=== PATIENT | female | born 1965 | race Two or more races ===

== ENCOUNTER 2019-06-13 19:58 | Emergency (ER) | payer SELFPAY ==
[~2019-06-13] VITALS: Ht 149.9 cm; Wt 75.3 kg
[2019-06-13 20:22] VITALS: BP 139/91
--- NOTE | 2019-06-13 20:22 | NUR ---
ED Nurse Note: Patient walked in to ER from halfway c/o decrease in appetite, insomnia, and weakness x 10 days. As per her coding specialist/ advocate, patient has difficulty sleeping and hasnt been drinking water for 3 days. No SOB. Alert nad oriented, verbally responsive. Afebrile. No c/o pain or any discomfort. Welsh speaking only. Chief Marketing Officer/ advocate at bedside.
--- NOTE | 2019-06-13 20:45 | NUR ---
ED Nurse Note: IV line established. Blood and urine collected and sent to lab.
--- NOTE | 2019-06-13 20:53 | NUR ---
ED Nurse Note: Xray at bedside.
[2019-06-13 21:03] LABS: BASOPHILS % (AUTO) 1.2 % (0.0-2.0); EOSINOPHILS % (AUTO) 3.3 % (0.0-3.0); HEMATOCRIT 40.4 % (37.0-47.0); HEMOGLOBIN 13.3 G/DL (12.0-16.0); LYMPHOCYTES % (AUTO) 26.8 % (20.0-45.0); MEAN CORPUSCULAR VOLUME 89 FL (80-99); MONOCYTES % (AUTO) 6.8 % (1.0-10.0); NEUTROPHILS % (AUTO) 61.8 % (45.0-75.0); PLATELET COUNT 473 K/UL (150-450); RED BLOOD COUNT 4.55 M/UL (4.20-5.40); RED CELL DISTRIBUTION WIDTH 12.4 % (11.6-14.8); WHITE BLOOD COUNT 9.7 K/UL (4.8-10.8)
[2019-06-13 21:06] LABS: APPEARANCE,URINE CLEAR; BILIRUBIN, URINE NEGATIVE (NEGATIVE); COLOR,URINE PALE YELLOW; GLUCOSE, URINE (UA) NEGATIVE (NEGATIVE); KETONES,URINE NEGATIVE (NEGATIVE); LEUKOCYTE ESTERASE ,URINE NEGATIVE (NEGATIVE); NITRITE,URINE NEGATIVE (NEGATIVE); PH,URINE 6 (4.5-8.0); PROTEIN,URINE NEGATIVE (NEGATIVE); UROBILINOGEN,URINE NORMAL MG/DL (0.0-1.0)
[2019-06-13 21:16] LABS: ANION GAP 9 mmol/L (5-15); BLOOD UREA NITROGEN 11 mg/dL (7-18); CALCIUM 9.5 MG/DL (8.5-10.1); CARBON DIOXIDE 30 MMOL/L (21-32); CHLORIDE 103 MMOL/L (98-107); CREATININE 0.8 MG/DL (0.55-1.30); POTASSIUM 3.8 MMOL/L (3.5-5.1); SODIUM 141 MMOL/L (136-145)
--- NOTE | 2019-06-13 21:17 | Emergency Room Report ---
History of Present Illness General Chief Complaint: General Complaint Source: Patient Present Illness HPI 54-year-old female presents the ED for evaluation. Patient presents with patient advocate. Patient does not speak [place]. Manager Bar over the phone tells us that patient is experiencing lightheadedness and feels weak for the last several days. Also describes episodic chest pain nonspecific over the last 10 days. Denies shortness of breath. Denies chest pain at this time. Patient does not take any medications. Denies any history of hypertension or diabetes. Denies alcohol or drug use. No other aggravating relieving factors. Denies any other associated symptoms Allergies: Coded Allergies: No Known Allergies (Unverified , 06/13/19) Patient History Past Medical History: none Past Surgical History: none Pertinent Family History: none Social History: Denies: smoking, alcohol use, drug use Now: No Immunizations: UTD Reviewed Nursing Documentation: PMH: Agreed; PSxH: Agreed Nursing Documentation-PMH Past Medical History: No Stated History Review of Systems All Other Systems: negative except mentioned in HPI Physical Exam Vital Signs Date Time Temp Pulse Resp B/P (MAP) Pulse Ox O2 Delivery O2 Flow Rate FiO2 06/13/19 20:16 98.1 75 18 139/91 (107) 97 Room Air Sp02 EP Interpretation: reviewed, normal General Appearance: no apparent distress, alert, GCS 15, non-toxic Head: normocephalic, atraumatic Eyes: bilateral eye normal inspection, bilateral eye PERRL ENT: hearing grossly normal, normal pharynx, no angioedema, normal voice Neck: full range of motion, supple/symm/no masses Respiratory: chest non-tender, lungs clear, normal breath sounds, speaking full sentences Cardiovascular #1: regular rate, rhythm, no edema Cardiovascular #2: 2+ carotid (R), 2+ carotid (L), 2+ radial (R), 2+ radial (L) , 2+ dorsalis pedis (R), 2+ dorsalis pedis (L) Gastrointestinal: normal bowel sounds, non tender, soft, non-distended, no guarding, no rebound Rectal: deferred Genitourinary: normal inspection, no CVA tenderness Musculoskeletal: back normal, normal range of motion, gait/station normal, non- tender Neurologic: alert, motor strength/tone normal, oriented x3, sensory intact, responsive, speech normal Psychiatric: judgement/insight normal, memory normal, mood/affect normal, no suicidal/homicidal ideation Reflexes: 3+ bicep (R), 3+ bicep (L), 3+ tricep (R), 3+ tricep (L), 3+ knee (R) , 3+ knee (L) Lymphatic: no adenopathy Medical Decision Making Diagnostic Impression: Primary Impression: Anxiety ER Course Hospital Course 54 yo F presents to ED c/o feeling weak, light headed, episode chest pain Differential diagnoses include: MN/unstable angina, dehydration, anxiety Clinical course Patient placed on stretcher. on potline monitor. After initial history and physical I ordered labs, EKG, chest x-ray, IVFs labs reviewed- no leukocytosis, hemoglobin/hematocrit stable, troponins negative , electrolytes okay EKG - NSR, no acute ischemc changes interpreted by me CXR - no acute process On reassessment patient feels better. Patient advocate at bedside. Confirms that patient is feeling better. Will discharge to home. Vital stable. Labs unremarkable. No risk factors. Patient advocate believes that anxiety could be contributing to patient's symptoms as she lives in a usp. We will discharge to home. We will provide PMD referrals I. I feel this is a highly complex case requiring extensive working including EKG/Rhythm strip, Xray/CT/US, Blood/urine lab work, repeat exams while in ED, and administration of strong opiates/narcotics for pain control, admission to hospital or close patient follow up. Diagnosis - anxiety Stable and discharged to home. Followup with PMD. Return to ED if symptoms recur or worse Labs Test 06/13/19 20:43 White Blood Count 9.7 K/UL (4.8-10.8) Red Blood Count 4.55 M/UL (4.20-5.40) Hemoglobin 13.3 G/DL (12.0-16.0) Hematocrit 40.4 % (37.0-47.0) Mean Corpuscular Volume 89 FL (80-99) Mean Corpuscular Hemoglobin 29.2 PG (27.0-31.0) Mean Corpuscular Hemoglobin Concent 32.9 G/DL (32.0-36.0) Red Cell Distribution Width 12.4 % (11.6-14.8) Platelet Count 473 K/UL (150-450) Mean Platelet Volume 5.8 FL (6.5-10.1) Neutrophils (%) (Auto) 61.8 % (45.0-75.0) Lymphocytes (%) (Auto) 26.8 % (20.0-45.0) Monocytes (%) (Auto) 6.8 % (1.0-10.0) Eosinophils (%) (Auto) 3.3 % (0.0-3.0) Basophils (%) (Auto) 1.2 % (0.0-2.0) Urine Color Pale yellow Urine Appearance Clear Urine pH 6 (4.5-8.0) Urine Specific [place] 1.010 (1.005-1.035) Urine Protein Negative (NEGATIVE) Urine Glucose (UA) Negative (NEGATIVE) Urine Ketones Negative (NEGATIVE) Urine Blood Negative (NEGATIVE) Urine Nitrite Negative (NEGATIVE) Urine Bilirubin Negative (NEGATIVE) Urine Urobilinogen Normal MG/DL (0.0-1.0) Urine Leukocyte Esterase Negative (NEGATIVE) Sodium Level 141 MMOL/L (136-145) Potassium Level 3.8 MMOL/L (3.5-5.1) Chloride Level 103 MMOL/L (98-107) Carbon Dioxide Level 30 MMOL/L (21-32) Anion Gap 9 mmol/L (5-15) Blood Urea Nitrogen 11 mg/dL (7-18) Creatinine 0.8 MG/DL (0.55-1.30) Estimat Glomerular Filtration Rate > 60 mL/min (>60) Glucose Level 104 MG/DL (74-106) Calcium Level 9.5 MG/DL (8.5-10.1) Total Bilirubin 0.3 MG/DL (0.2-1.0) Aspartate Amino Transf (AST/SGOT) 20 U/L (15-37) Alanine Aminotransferase (ALT/SGPT) 27 U/L (12-78) Alkaline Phosphatase 107 U/L (46-116) Troponin I 0.000 ng/mL (0.000-0.056) Total Protein 9.1 G/DL (6.4-8.2) Albumin 4.0 G/DL (3.4-5.0) Globulin 5.1 g/dL Albumin/Globulin Ratio 0.8 (1.0-2.7) EKG Diagnostic Results Rate: normal Rhythm: NSR ST Segments: no acute changes ASA given to the pt in ED: No Rhythm Strip Diag. Results EP Interpretation: yes Rhythm: NSR, no PVC's, no ectopy Chest X-Ray Diagnostic Results Chest X-Ray Diagnostic Results : Chest X-Ray Ordered: Yes # of Views/Limited/Complete: 1 View Indication: Chest Pain EP Interpretation: Yes Interpretation: no consolidation, no effusion, no pneumothorax, no acute cardiopulmonary disease Impression: No acute disease Electronically Signed by: Electronically signed by Cesar Leon MD Last Vital Signs Date Time Temp Pulse Resp B/P (MAP) Pulse Ox O2 Delivery O2 Flow Rate FiO2 06/13/19 20:22 98.1 78 18 139/91 97 Room Air Status: improved Disposition: HOME, SELF-CARE Condition: Stable Scripts Diphenhydramine Hcl* (DIPHENHYDRAMINE HCL*) 25 Mg Capsule 25 MG ORAL Q6H PRN for Itching, #30 CAP 0 Refills Prov: Cesar Leon MD 06/13/19 Cesar Leon MD Jun 13, 2019 21:16
[2019-06-13 21:21] LABS: ALANINE AMINOTRANSFERASE 27 U/L (12-78); ALBUMIN/GLOBULIN RATIO 0.8 (1.0-2.7); ALKALINE PHOSPHATASE 107 U/L (46-116); ASPARTATE AMINO TRANSFERASE 20 U/L (15-37); BILIRUBIN,TOTAL 0.3 MG/DL (0.2-1.0)
[2019-06-13] MEDS ORDERED: DIPHENHYDRAMINE25 M1 ORAL (21:38)
[2019-06-13 21:42] VITALS: BP 128/88
--- NOTE | 2019-06-13 21:42 | NUR ---
ED Nurse Note: Pt cleared by ERMD for discharge. DC instructions/prescription was given and explained to pt and verbalized understanding of teachings. All medical deviecs such as ID band and IV line removed. Pt is AAO x4, ambulatory and left with all personal belongings. Accompanied by her primary caregiver.
--- NOTE | 2019-06-14 10:56 | Diagnostic Imaging Report ---
Indication: Dyspnea Comparison: None A single view chest radiograph was obtained. Findings: Lung volumes are low. Pulmonary vascularity is accentuated as is heart size. Bones are unremarkable. IMPRESSION: No acute disease
== END 2019-06-13 21:40 | disposition home or self-care (01) ==
LOC: EMR 20:32
DX: F41.9 Anxiety disorder, unspecified (principal); R07.9 Chest pain, unspecified
CPT/HCPCS: 36415; 71045; 80053; 81003; 84484; 85025; 93005; 96360; 99284

== ENCOUNTER 2019-08-23 17:18 | Inpatient (IN) | payer MEDICAID ==
[~2019-08-23] VITALS: Ht 144.8 cm; Wt 79.8 kg
[~2019-08-23 17:18] MED LIST: AUGMENTIN 875-1 EAC1 ORAL; DIPHENHYDRAMINE25 M1 ORAL; GUAIFENESI100 MG/5 M ORAL; PREDNISONE20 MG ORAL; VENTOLIN HFA18 GM INH
[2019-08-23 17:45] VITALS: BP 138/88
[2019-08-23 18:17] LABS: BASOPHILS % (AUTO) 1.9 % (0.0-2.0); EOSINOPHILS % (AUTO) 2.6 % (0.0-3.0); HEMOGLOBIN 13.2 G/DL (12.0-16.0); LYMPHOCYTES % (AUTO) 30.9 % (20.0-45.0); MEAN CORPUSCULAR VOLUME 93 FL (80-99); MONOCYTES % (AUTO) 10.3 % (1.0-10.0); NEUTROPHILS % (AUTO) 54.4 % (45.0-75.0); PLATELET COUNT 425 K/UL (150-450); RED BLOOD COUNT 4.61 M/UL (4.20-5.40); RED CELL DISTRIBUTION WIDTH 13.7 % (11.6-14.8)
[2019-08-23 18:33] LABS: ANION GAP 7 mmol/L (5-15); BLOOD UREA NITROGEN 14 mg/dL (7-18); CALCIUM 9.8 MG/DL (8.5-10.1); CARBON DIOXIDE 31 MMOL/L (21-32); CHLORIDE 98 MMOL/L (98-107); CREATININE 0.8 MG/DL (0.55-1.30); INR 0.9 (0.9-1.1); POTASSIUM 5.1 MMOL/L (3.5-5.1); SODIUM 136 MMOL/L (136-145)
[2019-08-23 18:43] LABS: ALANINE AMINOTRANSFERASE 23 U/L (12-78); ALBUMIN 3.6 G/DL (3.4-5.0); ALBUMIN/GLOBULIN RATIO 0.7 (1.0-2.7); ALKALINE PHOSPHATASE 95 U/L (46-116); ASPARTATE AMINO TRANSFERASE 36 U/L (15-37); BILIRUBIN,TOTAL 0.5 MG/DL (0.2-1.0)
--- NOTE | 2019-08-23 19:33 | Emergency Room Report ---
History of Present Illness General Chief Complaint: Chest Pain Source: Patient, Medical Record Present Illness HPI This patient presents with chest pain. She states that for the past 4 days she has had recurrent chest pain radiating to her back and vomiting. She does not have a history of this. She does have a history of stress. She is currently living in a alf situation. There is some issues with her family that is distressing. She had been diagnosed last month with cardiomegaly here at [facility] emergency department and has not had any follow-up for this. She does not have a known history of any cardiac anomaly or abnormality. She denies cough or congestion. She denies fever or chills. She has no other complaints. Allergies: Coded Allergies: No Known Allergies (Unverified , 06/13/19) Patient History Past Medical History: none, see triage record Social History: Denies: smoking, alcohol use, drug use Last Menstrual Period: 08/03/19 Now: No Reviewed Nursing Documentation: PMH: Agreed; PSxH: Agreed Nursing Documentation-PMH Past Medical History: No History, Except For Hx Asthma: Yes Review of Systems All Other Systems: negative except mentioned in HPI Physical Exam Vital Signs Date Time Temp Pulse Resp B/P (MAP) Pulse Ox O2 Delivery O2 Flow Rate FiO2 08/23/19 17:33 97.2 93 16 140/90 (107) 100 Room Air Sp02 EP Interpretation: reviewed, normal General Appearance: no apparent distress, alert, GCS 15, non-toxic Head: normocephalic, atraumatic Eyes: bilateral eye normal inspection, bilateral eye PERRL ENT: hearing grossly normal, normal pharynx, no angioedema, normal voice Neck: full range of motion, supple/symm/no masses Respiratory: chest non-tender, lungs clear, normal breath sounds, no respiratory distress, no retraction, no accessory muscle use, speaking full sentences Cardiovascular #1: regular rate, rhythm, no edema Gastrointestinal: normal bowel sounds, non tender, soft, non-distended, no guarding, no rebound Rectal: deferred Musculoskeletal: back normal, normal range of motion, gait/station normal, non- tender Neurologic: alert, motor strength/tone normal, oriented x3, sensory intact, responsive, speech normal Psychiatric: judgement/insight normal, memory normal, mood/affect normal, no suicidal/homicidal ideation Skin: no rash, normal color Medical Decision Making Diagnostic Impression: Primary Impression: Chest pain ER Course This patient presents with chest pain. I suspect this is esophagitis/acid reflux, however, the patient does have significant cardiomegaly that has not been previously worked up. I feel that given the chest pain in this situation and the patient is unable to get into a mines inspector in an appropriate timeframe that this patient should be admitted for further evaluation of her cardiomegaly and chest pain. She is admitted for further evaluation and treatment. The patient is pending a CT of her chest. Please see the electronic medical record for these results. I will have another physician follow-up on this result as it is pending at the time of this dictation. An addendum will be made to this chart if there is any significant abnormality identified. Laboratory Tests Test 08/23/19 17:55 White Blood Count 11.0 K/UL (4.8-10.8) H Red Blood Count 4.61 M/UL (4.20-5.40) Hemoglobin 13.2 G/DL (12.0-16.0) Hematocrit 43.0 % (37.0-47.0) Mean Corpuscular Volume 93 FL (80-99) Mean Corpuscular Hemoglobin 28.6 PG (27.0-31.0) Mean Corpuscular Hemoglobin Concent 30.7 G/DL (32.0-36.0) L Red Cell Distribution Width 13.7 % (11.6-14.8) Platelet Count 425 K/UL (150-450) Mean Platelet Volume 6.5 FL (6.5-10.1) Neutrophils (%) (Auto) 54.4 % (45.0-75.0) Lymphocytes (%) (Auto) 30.9 % (20.0-45.0) Monocytes (%) (Auto) 10.3 % (1.0-10.0) H Eosinophils (%) (Auto) 2.6 % (0.0-3.0) Basophils (%) (Auto) 1.9 % (0.0-2.0) Prothrombin Time 9.6 SEC (9.30-11.50) Prothrombin Time INR 0.9 (0.9-1.1) Activated Partial Thromboplast Time 27 SEC (23-33) Sodium Level 136 MMOL/L (136-145) Potassium Level 5.1 MMOL/L (3.5-5.1) Chloride Level 98 MMOL/L (98-107) Carbon Dioxide Level 31 MMOL/L (21-32) Anion Gap 7 mmol/L (5-15) Blood Urea Nitrogen 14 mg/dL (7-18) Creatinine 0.8 MG/DL (0.55-1.30) Estimate Glomerular Filtration Rate > 60 mL/min (>60) Glucose Level 103 MG/DL (74-106) Calcium Level 9.8 MG/DL (8.5-10.1) Total Bilirubin 0.5 MG/DL (0.2-1.0) Aspartate Amino Transferase (AST) 36 U/L (15-37) Alanine Aminotransferase (ALT) 23 U/L (12-78) Alkaline Phosphatase 95 U/L (46-116) Troponin I 0.000 ng/mL (0.000-0.056) Pro-B-Type Natriuretic Peptide 6 pg/mL (0-125) Total Protein 8.8 G/DL (6.4-8.2) H Albumin 3.6 G/DL (3.4-5.0) Globulin 5.2 g/dL Albumin/Globulin Ratio 0.7 (1.0-2.7) L Lipase Pending EKG Diagnostic Results Rate: normal Rhythm: NSR ST Segments: no acute changes Rhythm Strip Diag. Results EP Interpretation: yes Rate: 80's Rhythm: NSR, no PVC's, no ectopy Chest X-Ray Diagnostic Results Chest X-Ray Diagnostic Results : Chest X-Ray Ordered: Yes # of Views/Limited/Complete: 1 View Indication: Chest Pain EP Interpretation: Yes Interpretation: other - Cardiomegaly Impression: No acute disease Electronically Signed by: Marion Villanueva DO CT/MRI/US Diagnostic Results CT/MRI/US Diagnostic Results : Imaging Test Ordered: CT Chest Impression Pending at the time of this dictation. See official report in electronic medical record. Last Vital Signs Date Time Temp Pulse Resp B/P (MAP) Pulse Ox O2 Delivery O2 Flow Rate FiO2 08/23/19 17:45 97.5 85 16 138/88 98 Room Air Disposition: ADMITTED INPATIENT Condition: Serious Scripts No Active Prescriptions or Reported Meds Referrals: NOT CHOSEN IPA/MD,REFERRING (PCP) Marion Villanueva DO Aug 23, 2019 19:33
[2019-08-23] MEDS ORDERED: Lidocaine 2% Visc 15ml soln ORAL ONE (19:45)
[2019-08-23 19:56] VITALS: BP 145/79
[2019-08-23] MEDS ORDERED: Omnipaque 350 100ml vial INJ PRN (21:15)
[2019-08-24 03:11] LABS: ALANINE AMINOTRANSFERASE 23 U/L (12-78); ALBUMIN 3.3 G/DL (3.4-5.0); ALBUMIN/GLOBULIN RATIO 0.7 (1.0-2.7); ALKALINE PHOSPHATASE 88 U/L (46-116); ANION GAP 10 mmol/L (5-15); ASPARTATE AMINO TRANSFERASE 15 U/L (15-37); BILIRUBIN,TOTAL 0.5 MG/DL (0.2-1.0); BLOOD UREA NITROGEN 10 mg/dL (7-18); CALCIUM 8.8 MG/DL (8.5-10.1); CARBON DIOXIDE 25 MMOL/L (21-32); CHLORIDE 104 MMOL/L (98-107); CREATININE 0.9 MG/DL (0.55-1.30); POTASSIUM 4.9 MMOL/L (3.5-5.1); SODIUM 139 MMOL/L (136-145)
[2019-08-24 04:00] VITALS: BP 119/73
[2019-08-24] MEDS: D5 1/2NS 1,000 ML IV SCH ×2 (04:17→21:22)
[2019-08-24 08:00] VITALS: BP 126/65
--- NOTE | 2019-08-24 09:34 | Consultation ---
Consult Note Consult Note PULMONARY Attempted to see patient Currently undergoing imaging studies Will evaluate later MD Danay Capps Omar Syed MD Aug 24, 2019 09:34
[2019-08-24] MEDS: Morphine Sulfate 2mg/ml Inj(IV/IM USE ONLY) IVP PRN ×3 (11:49→21:30)
[2019-08-24 12:00] VITALS: BP 112/75
--- NOTE | 2019-08-24 13:47 | Diagnostic Imaging Report ---
Indication: Chest pain Technique: Continuous helical transaxial imaging of the chest was obtained from the thoracic inlet to the upper abdomen during rapid intravenous contrast administration. Arterial phase of enhancement obtained. Coronal 2-D reformats were also obtained and maximum intensity projection images in multiple planes. Study obtained in a Siemens sensation [address] Automatic Exposure Control was utilized. Total Dose length Product (DLP): 792.[address] Dose Index Volume (CTDIvol): 96.4 mGy Comparison: None Findings: The pulmonary artery is well opacified and shows no filling defects. There is no adenopathy, pleural or pericardial effusions are identified. There is no aortic dissection or aneurysm identified within the chest. The lungs are essentially clear. There is a small cystic focus noted at the peripheral right lung base measuring 5 mm. This may be a pneumatocele is nonspecific. Mild, generalized groundglass opacification of the lungs noted nonspecific. The heart is mildly enlarged. Visualized part of the upper abdomen is notable for low attenuation of the liver is otherwise unremarkable. There is mild loss of height of the T12 vertebra consistent with a compression fracture deformity. This is probably old. IMPRESSION: No evidence of pulmonary embolus, aortic dissection or aneurysm. Mild groundglass opacification of the lungs, nonspecific. 5 mm cystic focus right lung base --pneumatocele vs. paraseptal bleb. Mild cardiomegaly. Old mild T12 vertebral compression fracture deformity Fatty liver The CT scanner at [facility] is accredited by the [employer] and the scans are performed using dose optimization techniques as appropriate to a performed exam including Automatic Exposure control.
--- NOTE | 2019-08-24 13:54 | Diagnostic Imaging Report ---
Indication: Dyspnea Comparison: 08/15/2019 A single view chest radiograph was obtained. Findings: Cardiomediastinal appearance is within normal limits for age. The lungs are clear. Pulmonary vascularity is appropriate. The diaphragmatic contour is smooth and costophrenic angles are sharp. No pleural effusions are identified. The bones are unremarkable. Impression: No acute findings
--- NOTE | 2019-08-24 15:30 | History and Physical Report ---
DATE OF ADMISSION: 08/23/2019 DATE AND TIME SEEN: 08/24/2019 at 9 a.m. CONSULTANTS: 1. Akash Jon M.D. 2. Tarik Llamas M.D. CHIEF COMPLAINT: Chest pain, short of breath, slight nausea and vomiting. BRIEF HISTORY: This is a 54-year-old female, who lives in a long-term, presented to [facility] last night with one-day history of slight chest pain, slight short of breath, and slightly nausea and vomiting as well. No loss of consciousness. Slight dizziness. The patient came to [facility], diagnosed as above with chest pain, shortness of breath and cardiomegaly, admitted to telemetry for further care. Currently, calm in bed, feeling better, no complaint. REVIEW OF SYSTEMS: Slight chest pain. Slight short of breath. Slight nausea and vomiting. No diarrhea. PAST MEDICAL HISTORY: Nothing. PAST SURGICAL HISTORY: None. ALLERGIES: Denies. MEDICATIONS: Include morphine, Tylenol, lidocaine, Zofran, . SOCIAL HISTORY: No smoking. No alcohol. No intravenous drug abuse. FAMILY HISTORY: Noncontributory. PHYSICAL EXAMINATION: GENERAL: Calm in bed, oriented x3, in no acute distress. VITAL SIGNS: Temperature is 98 degrees, pulse 79, respirations 19, and blood pressure 126/65. CARDIOVASCULAR: No murmur. LUNGS: Distant and clear. ABDOMEN: Postive bowel sounds. Soft, nontender, nondistended. EXTREMITIES: No cyanosis, clubbing, or edema. NEUROLOGIC: The patient moves all extremities, slightly weak. LABORATORY AND DIAGNOSTIC DATA: Labs at this time show white count 11, otherwise CBC is normal. BMP shows glucose 109. Troponin 0.00. Albumin 3.3. Lipase 102. INR is 0.9, PTT 27 ASSESSMENT: 1. Chest pain. 2. Shortness of breath. 3. Nausea and vomiting. 4. Cardiomegaly. PLAN: 1. O2 and pulmonary treatment. 2. PT, OT and dietary followup. 3. Antiemetics as needed. 4. Pain control. 5. Troponin q.8 h. x3. 6. EKG in a.m. 7. Pulmonary and Cardiology followup. Jon Cisneros D.O. DR: VICKI JOB#: [id number] CC:
[2019-08-24 16:00] VITALS: BP 114/79
[2019-08-24 20:00] VITALS: BP 129/72
--- NOTE | 2019-08-24 20:44 | Cardiology Progress Note ---
Assessment/Plan Assessment/Plan The patient is seen and examined, full consult note will be dictated. Objective Last 24 Hour Vital Signs Date Time Temp Pulse Resp B/P (MAP) Pulse Ox O2 Delivery O2 Flow Rate FiO2 08/24/19 20:00 97.7 78 18 129/72 (91) 98 08/24/19 16:00 73 08/24/19 16:00 97.3 62 18 114/79 (91) 98 08/24/19 12:00 71 08/24/19 12:00 97.1 61 19 112/75 (87) 97 08/24/19 09:00 Room Air 08/24/19 08:00 98.1 79 19 126/65 (85) 97 08/24/19 08:00 84 08/24/19 04:00 96.6 87 119/73 (88) 08/24/19 04:00 81 08/24/19 00:09 Room Air 08/23/19 21:05 97.9 80 18 141/72 98 Room Air Intake and Output 08/23/19 08/24/19 18:59 06:59 Intake Total 0 ml Balance 0 ml Intake Oral 0 ml Laboratory Tests Test 08/24/19 01:26 08/24/19 07:22 08/24/19 13:24 Sodium Level 139 MMOL/L (136-145) Potassium Level 4.9 MMOL/L (3.5-5.1) Chloride Level 104 MMOL/L (98-107) Carbon Dioxide Level 25 MMOL/L (21-32) Anion Gap 10 mmol/L (5-15) Blood Urea Nitrogen 10 mg/dL (7-18) Creatinine 0.9 MG/DL (0.55-1.30) Estimat Glomerular Filtration Rate > 60 mL/min (>60) Glucose Level 109 MG/DL (74-106) H Calcium Level 8.8 MG/DL (8.5-10.1) Total Bilirubin 0.5 MG/DL (0.2-1.0) Aspartate Amino Transf (AST/SGOT) 15 U/L (15-37) Alanine Aminotransferase (ALT/SGPT) 23 U/L (12-78) Alkaline Phosphatase 88 U/L (46-116) Troponin I 0.000 ng/mL (0.000-0.056) 0.000 ng/mL (0.000-0.056) 0.000 ng/mL (0.000-0.056) Total Protein 7.8 G/DL (6.4-8.2) Albumin 3.3 G/DL (3.4-5.0) L Globulin 4.5 g/dL Albumin/Globulin Ratio 0.7 (1.0-2.7) L Tarik Llamas MD Aug 24, 2019 20:44
--- NOTE | 2019-08-24 23:15 | Consultation ---
DATE OF CONSULTATION: 08/24/2019 CARDIOLOGY CONSULTATION CONSULTING PHYSICIAN: Tarik Llamas M.D. REFERRING PHYSICIAN: Jon Cisneros D.O. REASON FOR CONSULTATION: Management of chest pain. HISTORY OF PRESENT ILLNESS: The patient is a very unfortunate 54-year-old female with past medical history significant for asthma who presents to the hospital with four days complains of chest pain and upper epigastric pain right on the xiphoid process with radiation to her back as well as vomiting. She states that she has been having trouble controlling her stresses. She was in this hospital last month and a did not get admitted to the unit. She denies any prior history of coronary artery disease, congestive heart failure, or cardiac arrhythmias. She currently does not take any medications. At the time of arrival to this facility, blood pressure was 140/90 mmHg and heart rate of 93. A 12-lead electrocardiogram was significant for sinus rhythm rate of 80 with no acute ischemic changes. Troponin I level within normal limits as well as brain natriuretic peptide. The patient was admitted to telemetry for further evaluation and management. Cardiology consultation was made at request of Dr. Cisneros to address chest pain. PAST MEDICAL HISTORY: Asthma. SOCIAL HISTORY: Denies any tobacco, alcohol, or illicit drug use. ALLERGIES: No known drug allergies. REVIEW OF SYSTEMS: A 12-system review done essentially negative except what was mentioned in history of present illness. MEDICATIONS: List of medication, none. PAST SURGICAL HISTORY: None. PHYSICAL EXAMINATION: VITAL SIGNS: Blood pressure was 140/90, pulse of 93, respirations 16, temperature 97.3 degrees Fahrenheit, O2 saturation 100%. GENERAL: The patient is a very unfortunate 54-year-old lady in no respiratory distress. HEENT: Atraumatic and normocephalic. Anicteric. Pupils are equal, round, and reactive to light and accommodation. Extraocular muscles intact. NECK: JVP less than 5 cm. No carotid bruit. Carotid upstroke is 2+ bilaterally . CVS: Normal S1 and S2. Regular rate and rhythm. No murmurs, gallops, or rubs. There is tenderness over the xiphoid process. LUNGS: Clear to auscultation bilaterally. ABDOMEN: Soft, nontender, and nondistended. No hepatosplenomegaly. Positive bowel sounds. EXTREMITIES: No evidence of edema, clubbing, or cyanosis. LABORATORY FINDINGS: WBC 11.0, hemoglobin 13.2, hematocrit of 43.0 platelet count 425,000. Chemistry shows sodium 136, potassium 5.1, chloride 98, bicarbonate 31, BUN 14, creatinine 0.8, glucose 103. Calcium is 9.8. A proBNP was 6. Troponin I level x 4 is negative. INR is 0.9. Chest x-ray shows the expiratory film with no acute cardiopulmonary disease. Cardiac silhouette is within normal limits. Chest CT angiography shows no evidence of aortic dissection or aneurysm, no evidence of pulmonary embolism, ground-glass opacification of the lungs, mild cardiomegaly, old T12 vertebral compression fracture deformity. ASSESSMENT AND PLAN: The patient is a very unfortunate 54-year-old lady who is seen in Cardiology consultation. 1. Noncardiac chest pain. Mostly reproducible at the xiphoid area. A 12-lead electrocardiogram does not show any evidence of ischemia. Acute myocardial infarction is ruled out by four negative troponin I levels. I will also order 2D echocardiography for assessment of the systolic and diastolic function in particularly pulmonary hypertension. 2. History of asthma. I would like to thank, Dr. Cisneros, for the courtesy of this consultation. Tarik Llamas M.D. DR: Vinicio JOB#: [id number] CC:
[2019-08-25] VITALS: BP 119/81
[2019-08-25 04:00] VITALS: BP 122/71
[2019-08-25 07:07] LABS: ANION GAP 9 mmol/L (5-15); BLOOD UREA NITROGEN 9 mg/dL (7-18); CALCIUM 8.7 MG/DL (8.5-10.1); CARBON DIOXIDE 26 MMOL/L (21-32); CHLORIDE 103 MMOL/L (98-107); CREATININE 0.8 MG/DL (0.55-1.30); POTASSIUM 4.4 MMOL/L (3.5-5.1); SODIUM 138 MMOL/L (136-145)
[2019-08-25 07:09] LABS: BASOPHILS % (AUTO) 0.8 % (0.0-2.0); EOSINOPHILS % (AUTO) 3.5 % (0.0-3.0); HEMATOCRIT 33.4 % (37.0-47.0); HEMOGLOBIN 11.5 G/DL (12.0-16.0); LYMPHOCYTES % (AUTO) 31.3 % (20.0-45.0); MEAN CORPUSCULAR VOLUME 87 FL (80-99); NEUTROPHILS % (AUTO) 55.5 % (45.0-75.0); PLATELET COUNT 382 K/UL (150-450); RED BLOOD COUNT 3.81 M/UL (4.20-5.40); RED CELL DISTRIBUTION WIDTH 12.9 % (11.6-14.8); WHITE BLOOD COUNT 9.3 K/UL (4.8-10.8)
[2019-08-25 08:00] VITALS: BP 145/89
[2019-08-25] MEDS: Morphine Sulfate 2mg/ml Inj(IV/IM USE ONLY) IVP PRN ×2 (10:06→14:31)
[2019-08-25 12:00] VITALS: BP 123/76
--- NOTE | 2019-08-25 12:05 | General Progress Note ---
Assessment/Plan Problem List: (1) Chest pain ICD Codes: R07.9 - Chest pain, unspecified SNOMED: 04049547 (2) Anxiety ICD Codes: F41.9 - Anxiety disorder, unspecified SNOMED: 67788407 (3) Anemia ICD Codes: D64.9 - Anemia, unspecified SNOMED: 748469034 Assessment/Plan: ppi anemia work up fu stool ob fu cardiology GI procedure if needed Subjective ROS Limited/Unobtainable: No Allergies: Coded Allergies: No Known Allergies (Unverified , 06/13/19) Objective Last 24 Hour Vital Signs Date Time Temp Pulse Resp B/P (MAP) Pulse Ox O2 Delivery O2 Flow Rate FiO2 08/25/19 10:38 98.1 08/25/19 09:00 Room Air 08/25/19 08:00 76 08/25/19 08:00 98.1 80 16 145/89 (107) 94 08/25/19 04:00 75 08/25/19 04:00 97.7 75 18 122/71 (88) 96 08/25/19 00:00 68 08/25/19 00:00 96.9 71 18 119/81 (94) 97 08/24/19 21:00 Room Air 08/24/19 20:00 97.7 78 18 129/72 (91) 98 08/24/19 20:00 85 08/24/19 16:00 73 08/24/19 16:00 97.3 62 18 114/79 (91) 98 Intake and Output 08/24/19 08/25/19 19:00 07:00 Intake Total 1020 ml 540 ml Balance 1020 ml 540 ml Intake Oral 1020 ml IV Total 540 ml # Voids 1 2 Laboratory Tests 08/24/19 13:24: Troponin I 0.000 08/25/19 05:54: White Blood Count 9.3, Red Blood Count 3.81L, Hemoglobin 11.5L, Hematocrit 33.4L , Mean Corpuscular Volume 87, Mean Corpuscular Hemoglobin 30.3, Mean Corpuscular Hemoglobin Concent 34.6, Red Cell Distribution Width 12.9, Platelet Count 382, Mean Platelet Volume 5.6L, Neutrophils (%) (Auto) 55.5, Lymphocytes ( %) (Auto) 31.3, Monocytes (%) (Auto) 9.0, Eosinophils (%) (Auto) 3.5H, Basophils (%) (Auto) 0.8, Sodium Level 138, Potassium Level 4.4, Chloride Level 103, Carbon Dioxide Level 26, Anion Gap 9, Blood Urea Nitrogen 9, Creatinine 0.8 , Estimat Glomerular Filtration Rate > 60, Glucose Level 147H, Calcium Level 8.7 Height (Feet): 4 Height (Inches): 9.00 Weight (Pounds): 176 General Appearance: alert EENT: normal ENT inspection Neck: supple Cardiovascular: normal rate Respiratory/Chest: decreased breath sounds Abdomen: normal bowel sounds, non tender, soft Extremities: non-tender Stalin Alcantar MD Aug 25, 2019 12:05
--- NOTE | 2019-08-25 12:33 | General Progress Note ---
Assessment/Plan Problem List: (1) SOB (shortness of breath) ICD Codes: R06.02 - Shortness of breath SNOMED: 418208162 (2) Malnutrition ICD Codes: E46 - Unspecified protein-calorie malnutrition SNOMED: 63081347 (3) Cardiomegaly ICD Codes: I51.7 - Cardiomegaly SNOMED: 8722319 (4) Anxiety ICD Codes: F41.9 - Anxiety disorder, unspecified SNOMED: 21134465 (5) Chest pain ICD Codes: R07.9 - Chest pain, unspecified SNOMED: 86088146 (6) Anemia ICD Codes: D64.9 - Anemia, unspecified SNOMED: 464981093 Status: unchanged Assessment/Plan: pt diet o2 pulm tx cbc bmp am dc plan Subjective Constitutional: Reports: weakness Allergies: Coded Allergies: No Known Allergies (Unverified , 06/13/19) All Systems: reviewed and negative except above Subjective sl cp Objective Last 24 Hour Vital Signs Date Time Temp Pulse Resp B/P (MAP) Pulse Ox O2 Delivery O2 Flow Rate FiO2 08/25/19 12:00 81 08/25/19 12:00 97.7 77 16 123/76 (92) 99 08/25/19 10:38 98.1 08/25/19 09:00 Room Air 08/25/19 08:00 76 08/25/19 08:00 98.1 80 16 145/89 (107) 94 08/25/19 04:00 75 08/25/19 04:00 97.7 75 18 122/71 (88) 96 08/25/19 00:00 68 08/25/19 00:00 96.9 71 18 119/81 (94) 97 08/24/19 21:00 Room Air 08/24/19 20:00 97.7 78 18 129/72 (91) 98 08/24/19 20:00 85 08/24/19 16:00 73 08/24/19 16:00 97.3 62 18 114/79 (91) 98 Intake and Output 08/24/19 08/25/19 19:00 07:00 Intake Total 1020 ml 540 ml Balance 1020 ml 540 ml Intake Oral 1020 ml IV Total 540 ml # Voids 1 2 Laboratory Tests 08/24/19 13:24: Troponin I 0.000 08/25/19 05:54: White Blood Count 9.3, Red Blood Count 3.81L, Hemoglobin 11.5L, Hematocrit 33.4L , Mean Corpuscular Volume 87, Mean Corpuscular Hemoglobin 30.3, Mean Corpuscular Hemoglobin Concent 34.6, Red Cell Distribution Width 12.9, Platelet Count 382, Mean Platelet Volume 5.6L, Neutrophils (%) (Auto) 55.5, Lymphocytes ( %) (Auto) 31.3, Monocytes (%) (Auto) 9.0, Eosinophils (%) (Auto) 3.5H, Basophils (%) (Auto) 0.8, Sodium Level 138, Potassium Level 4.4, Chloride Level 103, Carbon Dioxide Level 26, Anion Gap 9, Blood Urea Nitrogen 9, Creatinine 0.8 , Estimat Glomerular Filtration Rate > 60, Glucose Level 147H, Calcium Level 8.7 Height (Feet): 4 Height (Inches): 9.00 Weight (Pounds): 176 General Appearance: alert EENT: normal ENT inspection Neck: normal alignment Cardiovascular: normal peripheral pulses, normal rate, regular rhythm Respiratory/Chest: chest wall non-tender, lungs clear, normal breath sounds Abdomen: normal bowel sounds, non tender, soft Extremities: normal inspection Edema: no edema noted Arm (L), no edema noted Arm (R), no edema noted Leg (L), no edema noted Leg (R), no edema noted Pedal (L), no edema noted Pedal (R), no edema noted Generalized Neurologic: responsive, motor weakness Skin: normal pigmentation, warm/dry Jon Cisneros DO Aug 25, 2019 12:33
[2019-08-25] MEDS: D5 1/2NS 1,000 ML IV SCH ×2 (13:26→16:15)
[2019-08-25] MEDS ORDERED: ACETAMINOPHEN325 M1 ORAL (14:03)
[2019-08-25 16:00] VITALS: BP 133/83
[2019-08-25] MEDS ORDERED: Omnipaque 350 100ml vial INJ PRN (16:00)
[2019-08-25] MEDS ORDERED: Morphine Sulfate 2mg/ml Inj(IV/IM USE ONLY) IVP PRN (16:08)
[2019-08-25] MEDS: Docusate 100mg cap ORAL SCH (17:09)
[2019-08-25] MEDS ORDERED: Docusate 100mg cap ORAL SCH (18:00)
--- NOTE | 2019-08-25 18:15 | Consultation ---
DATE OF CONSULTATION: 08/25/2019 CONSULTING PHYSICIAN: Chely Mixon M.D. REFERRING PHYSICIAN: Jon Cisneros D.O. HISTORY OF PRESENT ILLNESS: The patient is a 54-year-old female with a history of cardiomegaly, Hospital for medical stabilization. Dr. Cisneros asked me to see the patient. The patient lives in [facility], presents with anxiety and depressed mood. No suicidal or homicidal ideation. No psychotic symptoms. PAST PSYCHIATRIC HISTORY: No known history of suicide attempt. PAST MEDICAL HISTORY: As above. ALLERGIES: No known drug allergies. SUBSTANCE ABUSE HISTORY: No known history of illicit drug use or alcohol. MENTAL STATUS EXAMINATION: The patient is alert, oriented times self, place, and situation. Mood is anxious. Affect is constricted, congruent with mood. Thought process is concrete. Thought content, no suicidal or homicidal ideation. ASSESSMENT: [place] I Anxiety disorder. [place] II Deferred. [place] III As above. [place] IV Low. [place] V 55. PLAN: 1. Lexapro 10 mg in the morning. 2. Provide the patient with reality orientation and supportive therapy. Chely Mixon M.D. DR: TG JOB#: [id number] CC: VINCENT
--- NOTE | 2019-08-25 19:57 | Consultation ---
Consult Note Consult Note HISTORY OF PRESENT ILLNESS: The patient is a 54-year-old female with past medical history significant for asthma who presents to the hospital with four days complains of chest pain and upper epigastric pain right on the xiphoid process with radiation to her back as well as vomiting. She states that she has been having trouble controlling her stresses. She was in this hospital last month and a did not get admitted to the unit. She denies any prior history of coronary artery disease, congestive heart failure, or cardiac arrhythmias. She currently does not take any medications. At the time of arrival to this facility, blood pressure was 140/90 mmHg and heart rate of 93. A 12-lead electrocardiogram was significant for sinus rhythm rate of 80 with no acute ischemic changes. Troponin I level within normal limits as well as brain natriuretic peptide. The patient was admitted to telemetry for further evaluation and management. PAST MEDICAL HISTORY: Asthma. SOCIAL HISTORY: Denies any tobacco, alcohol, or illicit drug use. ALLERGIES: No known drug allergies. REVIEW OF SYSTEMS: A 12-system review done essentially negative except what was mentioned in history of present illness. MEDICATIONS: List of medication, none. PAST SURGICAL HISTORY: None. PHYSICAL EXAMINATION: VITAL SIGNS: Blood pressure was 140/90, pulse of 93, respirations 16, temperature 97.3 degrees Fahrenheit, O2 saturation 100%. GENERAL: The patient is a very unfortunate 54-year-old lady in no respiratory distress. HEENT: Atraumatic and normocephalic. Anicteric. Pupils are equal, round, and reactive to light and accommodation. Extraocular muscles intact. NECK: JVP less than 5 cm. No carotid bruit. Carotid upstroke is 2+ bilaterally . CVS: Normal S1 and S2. Regular rate and rhythm. No murmurs, gallops, or rubs. There is tenderness over the xiphoid process. LUNGS: Clear to auscultation bilaterally. ABDOMEN: Soft, nontender, and nondistended. No hepatosplenomegaly. Positive bowel sounds. EXTREMITIES: No evidence of edema, clubbing, or cyanosis. LABORATORY FINDINGS: WBC 11.0, hemoglobin 13.2, hematocrit of 43.0 platelet count 425,000. Chemistry shows sodium 136, potassium 5.1, chloride 98, bicarbonate 31, BUN 14, creatinine 0.8, glucose 103. Calcium is 9.8. A proBNP was 6. Troponin I level x 4 is negative. INR is 0.9. Chest x-ray shows the expiratory film with no acute cardiopulmonary disease. Cardiac silhouette is within normal limits. Chest CT angiography shows no evidence of aortic dissection or aneurysm, no evidence of pulmonary embolism, ground-glass opacification of the lungs, mild cardiomegaly, old T12 vertebral compression fracture deformity. ASSESSMENT AND PLAN: 1. Noncardiac chest pain. Mostly reproducible at the xiphoid area. A 12-lead electrocardiogram does not show any evidence of ischemia. Acute myocardial infarction is ruled out by four negative troponin I levels. 2. History of asthma. Stable. Akash Jon M.D. Akash Jon MD Aug 25, 2019 19:57
[2019-08-25 21:00] VITALS: BP 132/71
--- NOTE | 2019-08-25 23:55 | Cardiology Progress Note ---
Assessment/Plan Assessment/Plan 1. Noncardiac chest pain. Mostly reproducible at the xiphoid area. 12-lead electrocardiogram does not show any evidence of ischemia. Acute myocardial infarction is ruled out by four negative troponin I levels. 2D echocardiography reveals normal LV systolic and diastolic function. 2. History of asthma. 3. Abdominal pain, GI work-up. Objective Last 24 Hour Vital Signs Date Time Temp Pulse Resp B/P (MAP) Pulse Ox O2 Delivery O2 Flow Rate FiO2 08/25/19 21:00 98.2 69 20 132/71 (91) 98 08/25/19 21:00 Room Air 08/25/19 16:00 98.3 69 16 133/83 (100) 98 08/25/19 12:00 81 08/25/19 12:00 97.7 77 16 123/76 (92) 99 08/25/19 10:38 98.1 08/25/19 09:00 Room Air 08/25/19 08:00 76 08/25/19 08:00 98.1 80 16 145/89 (107) 94 08/25/19 04:00 75 08/25/19 04:00 97.7 75 18 122/71 (88) 96 08/25/19 00:00 68 08/25/19 00:00 96.9 71 18 119/81 (94) 97 Intake and Output 08/24/19 08/25/19 19:00 07:00 Intake Total 1020 ml 540 ml Balance 1020 ml 540 ml Intake Oral 1020 ml IV Total 540 ml # Voids 1 2 Laboratory Tests Test 08/25/19 05:54 White Blood Count 9.3 K/UL (4.8-10.8) Red Blood Count 3.81 M/UL (4.20-5.40) L Hemoglobin 11.5 G/DL (12.0-16.0) L Hematocrit 33.4 % (37.0-47.0) L Mean Corpuscular Volume 87 FL (80-99) Mean Corpuscular Hemoglobin 30.3 PG (27.0-31.0) Mean Corpuscular Hemoglobin Concent 34.6 G/DL (32.0-36.0) Red Cell Distribution Width 12.9 % (11.6-14.8) Platelet Count 382 K/UL (150-450) Mean Platelet Volume 5.6 FL (6.5-10.1) L Neutrophils (%) (Auto) 55.5 % (45.0-75.0) Lymphocytes (%) (Auto) 31.3 % (20.0-45.0) Monocytes (%) (Auto) 9.0 % (1.0-10.0) Eosinophils (%) (Auto) 3.5 % (0.0-3.0) H Basophils (%) (Auto) 0.8 % (0.0-2.0) Sodium Level 138 MMOL/L (136-145) Potassium Level 4.4 MMOL/L (3.5-5.1) Chloride Level 103 MMOL/L (98-107) Carbon Dioxide Level 26 MMOL/L (21-32) Anion Gap 9 mmol/L (5-15) Blood Urea Nitrogen 9 mg/dL (7-18) Creatinine 0.8 MG/DL (0.55-1.30) Estimat Glomerular Filtration Rate > 60 mL/min (>60) Glucose Level 147 MG/DL (74-106) H Calcium Level 8.7 MG/DL (8.5-10.1) Objective HEENT: Atraumatic and normocephalic. Anicteric. Pupils are equal, round, and reactive to light and accommodation. Extraocular muscles intact. NECK: JVP less than 5 cm. No carotid bruit. Carotid upstroke is 2+ bilaterally . CVS: Normal S1 and S2. Regular rate and rhythm. No murmurs, gallops, or rubs. There is tenderness over the xiphoid process. LUNGS: Clear to auscultation bilaterally. ABDOMEN: Soft, nontender, and nondistended. No hepatosplenomegaly. Positive bowel sounds. EXTREMITIES: No evidence of edema, clubbing, or cyanosis. Tarik Llamas MD Aug 25, 2019 23:55
[2019-08-26] VITALS: BP 132/69
[2019-08-26 04:00] VITALS: BP 138/75
[2019-08-26 06:41] LABS: BASOPHILS % (AUTO) 1.2 % (0.0-2.0); EOSINOPHILS % (AUTO) 2.8 % (0.0-3.0); HEMATOCRIT 35.5 % (37.0-47.0); HEMOGLOBIN 12.1 G/DL (12.0-16.0); LYMPHOCYTES % (AUTO) 25.9 % (20.0-45.0); MEAN CORPUSCULAR VOLUME 89 FL (80-99); MONOCYTES % (AUTO) 8.5 % (1.0-10.0); NEUTROPHILS % (AUTO) 61.7 % (45.0-75.0); PLATELET COUNT 391 K/UL (150-450); RED BLOOD COUNT 4.01 M/UL (4.20-5.40); WHITE BLOOD COUNT 10.3 K/UL (4.8-10.8)
[2019-08-26 06:54] LABS: ANION GAP 7 mmol/L (5-15); BLOOD UREA NITROGEN 9 mg/dL (7-18); CALCIUM 9.1 MG/DL (8.5-10.1); CARBON DIOXIDE 29 MMOL/L (21-32); CHLORIDE 101 MMOL/L (98-107); CREATININE 0.8 MG/DL (0.55-1.30); POTASSIUM 4.1 MMOL/L (3.5-5.1); SODIUM 137 MMOL/L (136-145)
[2019-08-26 07:29] LABS: % IRON SATURATION 20 % (15-50); IRON 82 ug/dL (50-175); TOTAL IRON BINDING CAPACITY 417 ug/dL (250-450)
[2019-08-26 08:00] VITALS: BP 120/78
[2019-08-26] MEDS: D5 1/2NS 1,000 ML IV SCH (08:46)
[2019-08-26] MEDS: Docusate 100mg cap ORAL SCH ×2 (08:54→17:02)
--- NOTE | 2019-08-26 10:10 | General Progress Note ---
Assessment/Plan Problem List: (1) SOB (shortness of breath) ICD Codes: R06.02 - Shortness of breath SNOMED: 921638547 (2) Malnutrition ICD Codes: E46 - Unspecified protein-calorie malnutrition SNOMED: 14235552 (3) Cardiomegaly ICD Codes: I51.7 - Cardiomegaly SNOMED: 0197932 (4) Anxiety ICD Codes: F41.9 - Anxiety disorder, unspecified SNOMED: 83851623 (5) Chest pain ICD Codes: R07.9 - Chest pain, unspecified SNOMED: 90888077 (6) Anemia ICD Codes: D64.9 - Anemia, unspecified SNOMED: 406742252 Status: unchanged Assessment/Plan: pt diet o2 pulm tx cbc bmp am dc if clear Subjective Constitutional: Reports: weakness Allergies: Coded Allergies: No Known Allergies (Unverified , 06/13/19) All Systems: reviewed and negative except above Subjective calm in bed Objective Last 24 Hour Vital Signs Date Time Temp Pulse Resp B/P (MAP) Pulse Ox O2 Delivery O2 Flow Rate FiO2 08/26/19 08:00 97.1 80 20 120/78 (92) 97 08/26/19 04:00 98.0 82 20 138/75 (96) 98 08/26/19 00:00 97.4 66 20 132/69 (90) 98 08/25/19 21:00 98.2 69 20 132/71 (91) 98 08/25/19 21:00 Room Air 08/25/19 16:00 98.3 69 16 133/83 (100) 98 08/25/19 12:00 81 08/25/19 12:00 97.7 77 16 123/76 (92) 99 08/25/19 10:38 98.1 Intake and Output 08/25/19 08/26/19 19:00 07:00 Intake Total 645 ml 720 ml Balance 645 ml 720 ml Intake Oral 300 ml IV Total 345 ml 720 ml # Voids 2 # Bowel Movements 2 Laboratory Tests 08/26/19 04:30: Stool Occult Blood [Pending] 08/26/19 05:30: White Blood Count 10.3, Red Blood Count 4.01L, Hemoglobin 12.1, Hematocrit 35.5L , Mean Corpuscular Volume 89, Mean Corpuscular Hemoglobin 30.2, Mean Corpuscular Hemoglobin Concent 34.1, Red Cell Distribution Width 13.0, Platelet Count 391, Mean Platelet Volume 5.7L, Neutrophils (%) (Auto) 61.7, Lymphocytes ( %) (Auto) 25.9, Monocytes (%) (Auto) 8.5, Eosinophils (%) (Auto) 2.8, Basophils (%) (Auto) 1.2, Sodium Level 137, Potassium Level 4.1, Chloride Level 101, Carbon Dioxide Level 29, Anion Gap 7, Blood Urea Nitrogen 9, Creatinine 0.8, Estimat Glomerular Filtration Rate > 60, Glucose Level 131H, Calcium Level 9.1, Iron Level 82, Total Iron Binding Capacity 417, Percent Iron Saturation 20, Unsaturated Iron Binding 335 Height (Feet): 4 Height (Inches): 9.00 Weight (Pounds): 176 General Appearance: lethargic EENT: normal ENT inspection Neck: normal alignment Cardiovascular: normal peripheral pulses, normal rate, regular rhythm Respiratory/Chest: chest wall non-tender, lungs clear, normal breath sounds Abdomen: normal bowel sounds, non tender, soft Extremities: normal inspection Neurologic: motor weakness Skin: normal pigmentation, warm/dry Jon Cisneros DO Aug 26, 2019 10:10
--- NOTE | 2019-08-26 10:48 | General Progress Note ---
Assessment/Plan Problem List: (1) Chest pain ICD Codes: R07.9 - Chest pain, unspecified SNOMED: 38728504 (2) Anxiety ICD Codes: F41.9 - Anxiety disorder, unspecified SNOMED: 76338839 (3) Anemia ICD Codes: D64.9 - Anemia, unspecified SNOMED: 342714189 Status: unchanged Assessment/Plan: ppi anemia work up fu stool ob fu cardiology GI procedure if needed Subjective ROS Limited/Unobtainable: Yes Allergies: Coded Allergies: No Known Allergies (Unverified , 06/13/19) Objective Last 24 Hour Vital Signs Date Time Temp Pulse Resp B/P (MAP) Pulse Ox O2 Delivery O2 Flow Rate FiO2 08/26/19 08:00 97.1 80 20 120/78 (92) 97 08/26/19 04:00 98.0 82 20 138/75 (96) 98 08/26/19 00:00 97.4 66 20 132/69 (90) 98 08/25/19 21:00 98.2 69 20 132/71 (91) 98 08/25/19 21:00 Room Air 08/25/19 16:00 98.3 69 16 133/83 (100) 98 08/25/19 12:00 81 08/25/19 12:00 97.7 77 16 123/76 (92) 99 Intake and Output 08/25/19 08/26/19 19:00 07:00 Intake Total 645 ml 720 ml Balance 645 ml 720 ml Intake Oral 300 ml IV Total 345 ml 720 ml # Voids 2 # Bowel Movements 2 Laboratory Tests 08/26/19 04:30: Stool Occult Blood [Pending] 08/26/19 05:30: White Blood Count 10.3, Red Blood Count 4.01L, Hemoglobin 12.1, Hematocrit 35.5L , Mean Corpuscular Volume 89, Mean Corpuscular Hemoglobin 30.2, Mean Corpuscular Hemoglobin Concent 34.1, Red Cell Distribution Width 13.0, Platelet Count 391, Mean Platelet Volume 5.7L, Neutrophils (%) (Auto) 61.7, Lymphocytes ( %) (Auto) 25.9, Monocytes (%) (Auto) 8.5, Eosinophils (%) (Auto) 2.8, Basophils (%) (Auto) 1.2, Sodium Level 137, Potassium Level 4.1, Chloride Level 101, Carbon Dioxide Level 29, Anion Gap 7, Blood Urea Nitrogen 9, Creatinine 0.8, Estimat Glomerular Filtration Rate > 60, Glucose Level 131H, Calcium Level 9.1, Iron Level 82, Total Iron Binding Capacity 417, Percent Iron Saturation 20, Unsaturated Iron Binding 335 Height (Feet): 4 Height (Inches): 9.00 Weight (Pounds): 176 General Appearance: alert EENT: normal ENT inspection Neck: supple Cardiovascular: normal rate Respiratory/Chest: decreased breath sounds Abdomen: normal bowel sounds, non tender, soft Extremities: non-tender Stalin Alcantar MD Aug 26, 2019 10:48
[2019-08-26 12:00] VITALS: BP 149/87
[2019-08-26] MEDS ORDERED: Lexiscan 0.4mg/5ml syringe IV ONE (12:00)
--- NOTE | 2019-08-26 12:54 | Pulmonology Progress Note ---
Assessment/Plan Assessment/Plan ASSESSMENT AND PLAN: 1. Noncardiac chest pain. Mostly reproducible at the xiphoid area. A 12-lead electrocardiogram does not show any evidence of ischemia. Acute myocardial infarction is ruled out by four negative troponin I levels. 2. History of asthma. Stable. OK to dc home Akash Jon M.D. Subjective Interval Events: None new Constitutional: Reports: no symptoms HEENT: Repors: no symptoms Respiratory: Reports: no symptoms Cardiovascular: Reports: no symptoms Gastrointestinal/Abdominal: Reports: no symptoms Allergies: Coded Allergies: No Known Allergies (Unverified , 06/13/19) Objective Last 24 Hour Vital Signs Date Time Temp Pulse Resp B/P (MAP) Pulse Ox O2 Delivery O2 Flow Rate FiO2 08/26/19 12:00 99.1 80 19 149/87 (107) 97 08/26/19 09:00 Room Air 08/26/19 08:00 97.1 80 20 120/78 (92) 97 08/26/19 04:00 98.0 82 20 138/75 (96) 98 08/26/19 00:00 97.4 66 20 132/69 (90) 98 08/25/19 21:00 98.2 69 20 132/71 (91) 98 08/25/19 21:00 Room Air 08/25/19 16:00 98.3 69 16 133/83 (100) 98 Intake and Output 08/25/19 08/26/19 19:00 07:00 Intake Total 645 ml 720 ml Balance 645 ml 720 ml Intake Oral 300 ml IV Total 345 ml 720 ml # Voids 2 # Bowel Movements 2 General Appearance: no acute distress HEENT: normocephalic Respiratory/Chest: chest wall non-tender, lungs clear Cardiovascular: normal peripheral pulses, normal rate Abdomen: normal bowel sounds Microbiology Date/Time Source Procedure Growth Status 08/23/19 20:15 Nasal Nares MRSA Culture - Final NO METHICILLIN RESISTANT STAPH AUREUS... Complete 08/23/19 20:15 Rectum - Final NO CARBAPENEM-RESISTANT ENTEROBACTERI... Complete 08/23/19 20:15 Rectum VRE Culture - Final NO VANCOMYCIN RESISTANT ENTEROCOCCUS ... Complete Laboratory Tests 08/26/19 04:30: Stool Occult Blood Negative 08/26/19 05:30: White Blood Count 10.3, Red Blood Count 4.01L, Hemoglobin 12.1, Hematocrit 35.5L , Mean Corpuscular Volume 89, Mean Corpuscular Hemoglobin 30.2, Mean Corpuscular Hemoglobin Concent 34.1, Red Cell Distribution Width 13.0, Platelet Count 391, Mean Platelet Volume 5.7L, Neutrophils (%) (Auto) 61.7, Lymphocytes ( %) (Auto) 25.9, Monocytes (%) (Auto) 8.5, Eosinophils (%) (Auto) 2.8, Basophils (%) (Auto) 1.2, Sodium Level 137, Potassium Level 4.1, Chloride Level 101, Carbon Dioxide Level 29, Anion Gap 7, Blood Urea Nitrogen 9, Creatinine 0.8, Estimat Glomerular Filtration Rate > 60, Glucose Level 131H, Calcium Level 9.1, Iron Level 82, Total Iron Binding Capacity 417, Percent Iron Saturation 20, Unsaturated Iron Binding 335 Current Medications Medications (Trade) Dose Ordered Sig/Kristian Route PRN Reason Start Time Stop Time Status Last Admin Dose Admin Acetaminophen (Tylenol) 650 mg Q4H PRN ORAL Mild Pain/Temp > 100.5 08/25/19 16:06 09/24/19 16:05 08/25/19 17:08 Bisacodyl (Dulcolax) 10 mg BIDPRN PRN RECTAL Constipation 08/25/19 16:06 09/24/19 16:05 08/25/19 23:09 Dextrose/Sodium Chloride 1,000 ml @ 60 mls/hr [id number] IV 08/25/19 16:06 09/24/19 16:05 08/25/19 16:15 Docusate Sodium (Colace) 100 mg TWICE A DAY ORAL 08/25/19 18:00 09/24/19 17:59 08/26/19 08:54 Escitalopram Oxalate (Lexapro) 10 mg DAILY ORAL 08/26/19 09:00 09/25/19 08:59 08/26/19 08:54 Morphine Sulfate (Morphine Sulfate) 2 mg Q4H PRN IVP For Pain 08/25/19 16:08 09/01/19 16:07 08/25/19 23:09 Pantoprazole (Protonix) 40 mg DAILY ORAL 08/26/19 09:00 09/25/19 08:59 08/26/19 08:53 Akash Jon MD Aug 26, 2019 12:54
[2019-08-26 15:30] VITALS: BP 123/70
--- NOTE | 2019-08-26 15:35 | Diagnostic Imaging Report ---
Indication: chest pain Technique: The study was conducted under the supervision of a automotive painter. lexiscan (regadenoson) infusion over 10 seconds followed by intravenous administration of 31.9 mCi of technetium 99m Myoview was performed. Three plane SPECT imaging of the heart was then performed. A resting study was performed as part of the one-day protocol with 10.9 mCi of technetium 99m myoview injected intravenously at that time. Three plane SPECT imaging of the heart was obtained. Comparison: None Clinical data: 1. Clinical response: Non ischemic 2. Electrocardiographic response: Non ischemic Findings: The myocardial perfusion scan demonstrates no fixed or reversible perfusion defects. LVEF is estimated at 80%. No evidence of myocardial ischemia. IMPRESSION: Negative myocardial perfusion scan. Note: Estimation of LVEF on this examination is likely inaccurate. In our experience, the calculated LVEF is usually overestimated on this software program.
[2019-08-26 16:00] VITALS: BP 140/89
--- NOTE | 2019-08-26 22:54 | Cardiology Progress Note ---
Assessment/Plan Assessment/Plan 1. Noncardiac chest pain. Non-ischemic myocardial perfusion imaging study. Acute myocardial infarction is ruled out by four negative troponin I levels. 2D echocardiography reveals normal LV systolic and diastolic function. 2. History of asthma. 3. Abdominal pain. Subjective Subjective No cardiac events reported. Objective Last 24 Hour Vital Signs Date Time Temp Pulse Resp B/P (MAP) Pulse Ox O2 Delivery O2 Flow Rate FiO2 08/26/19 16:00 99.2 85 19 140/89 (106) 99 08/26/19 12:00 99.1 80 19 149/87 (107) 97 08/26/19 09:00 Room Air 08/26/19 08:00 97.1 80 20 120/78 (92) 97 08/26/19 04:00 98.0 82 20 138/75 (96) 98 08/26/19 00:00 97.4 66 20 132/69 (90) 98 Intake and Output 08/25/19 08/26/19 19:00 07:00 Intake Total 645 ml 720 ml Balance 645 ml 720 ml Intake Oral 300 ml IV Total 345 ml 720 ml # Voids 2 # Bowel Movements 2 2D Echo: LVEF 65%, RVSP 13 mmHg, Normal LV Diastolic Fxn. Laboratory Tests Test 08/26/19 04:30 08/26/19 05:30 Stool Occult Blood Negative (NEGATIVE) White Blood Count 10.3 K/UL (4.8-10.8) Red Blood Count 4.01 M/UL (4.20-5.40) L Hemoglobin 12.1 G/DL (12.0-16.0) Hematocrit 35.5 % (37.0-47.0) L Mean Corpuscular Volume 89 FL (80-99) Mean Corpuscular Hemoglobin 30.2 PG (27.0-31.0) Mean Corpuscular Hemoglobin Concent 34.1 G/DL (32.0-36.0) Red Cell Distribution Width 13.0 % (11.6-14.8) Platelet Count 391 K/UL (150-450) Mean Platelet Volume 5.7 FL (6.5-10.1) L Neutrophils (%) (Auto) 61.7 % (45.0-75.0) Lymphocytes (%) (Auto) 25.9 % (20.0-45.0) Monocytes (%) (Auto) 8.5 % (1.0-10.0) Eosinophils (%) (Auto) 2.8 % (0.0-3.0) Basophils (%) (Auto) 1.2 % (0.0-2.0) Sodium Level 137 MMOL/L (136-145) Potassium Level 4.1 MMOL/L (3.5-5.1) Chloride Level 101 MMOL/L (98-107) Carbon Dioxide Level 29 MMOL/L (21-32) Anion Gap 7 mmol/L (5-15) Blood Urea Nitrogen 9 mg/dL (7-18) Creatinine 0.8 MG/DL (0.55-1.30) Estimat Glomerular Filtration Rate > 60 mL/min (>60) Glucose Level 131 MG/DL (74-106) H Calcium Level 9.1 MG/DL (8.5-10.1) Iron Level 82 ug/dL (50-175) Total Iron Binding Capacity 417 ug/dL (250-450) Percent Iron Saturation 20 % (15-50) Unsaturated Iron Binding 335 ug/dL (112-346) Objective HEENT: Atraumatic and normocephalic. Anicteric. Pupils are equal, round, and reactive to light and accommodation. Extraocular muscles intact. NECK: JVP less than 5 cm. No carotid bruit. Carotid upstroke is 2+ bilaterally . CVS: Normal S1 and S2. Regular rate and rhythm. No murmurs, gallops, or rubs. There is tenderness over the xiphoid process. LUNGS: Clear to auscultation bilaterally. ABDOMEN: Soft, nontender, and nondistended. No hepatosplenomegaly. Positive bowel sounds. EXTREMITIES: No evidence of edema, clubbing, or cyanosis. Tarik Llamas MD Aug 26, 2019 22:54
--- NOTE | 2019-08-28 10:01 | Discharge Summary ---
Discharge Summary Discharge Summary _ DATE OF ADMISSION: 08/23/2019 DATE OF DISCHARGE: 08/26/2019 DISCHARGED BY: Dr. Jon Cisneros CONSULTANTS: Dr. Tarik Mixon [facility]SE: Patient is a 54-year-old female, who [place], presented to [facility] due to 1 day history of chest pain, shortness of breath, nausea and vomiting. She denied any past medical history. Denied cough or congestion. Denied fever or chills. Upon evaluation at ED, vital signs were stable. Troponin was negative. EKG showed normal sinus rhythm with no acute changes. Chest x-ray with no acute findings. CTA of the chest with no evidence of pulmonary embolus, aortic dissection or aneurysm. There was a finding of a 5 mm cystic focus right lung base. Groundglass opacification of the lungs and cardiomegaly. She was admitted for evaluation of chest pain. She was admitted to telemetry. She underwent cardiac evaluation. EKG showed sinus rhythm with a rate of 80 with no acute ischemic changes. Troponin x4 were negative. Chest pain was reproducible at the xiphoid area. Echocardiogram showed normal left ventricular systolic and diastolic function. She was noted to have slight anemia. Patient was given proton pump inhibitors. Stool OB was negative Patient has anxiety and depressed mood. She denied any suicidal or homicidal ideation. No psychotic symptoms. She was seen by psychiatrist and was continued on Lexapro 10 mg in the morning. She underwent Lexiscan stress test. Results showed no fixed or reversible perfusion defects. No evidence of myocardial ischemia. Patient was cleared for discharge home. FINAL DIAGNOSES: Noncardiac chest pain Anxiety Anemia DISPOSITION: The treating physician has assessed that the patient is medically stable for discharge to an outstretched disposition. DISCHARGE MEDICATIONS: Refer to Discharge Medication List. DISCHARGE INSTRUCTIONS: Follow-up in a week. I have been assigned to complete a discharge summary on this account, I was not involved with the patient's management.--ADRIANA Reese Jacqueline Robles NP Aug 28, 2019 10:00
--- NOTE | 2019-08-31 10:01 | Coder Physician Query ---
Clarification is required for compliance, coding accuracy, and to reflect severity of illness for this patient Dear Dr. LLAMAS Date: 08/31/2019 Train Reservation Clerk/CDS' Name: NANCY Espinoza Noncardiac chest pain. Mostly reproducible at the xiphoid area. A 12-lead electrocardiogram does not show any evidence of ischemia. Acute myocardial infarction is ruled out by four negative troponin I levels. I will also order 2D echocardiography for assessment of the systolic and diastolic function in particularly pulmonary hypertension. Dr. Llamas - Please document the suspected etiology of Chest Pain if known: [] Acute Coronary Syndrome [] Pericarditis [] Anxiety [] Cancer [] Pneumonia [] Costochondritis [] Pneumothorax [x] GERD/Esophagitis Muscular [] Other: [] Unable to determine Holly Morse. Date & Time Please also document in your Progress Notes and/or Discharge Summary and indicate if the condition was present on admission. MTDD
== END 2019-08-26 19:30 | DRG 243 ==
LOC: EMR 18:29 → 2E 20:10 → EDBEDREQ 20:46 → 3E 08-25 15:45
DX: K21.0 Gastro-esophageal reflux disease with esophagitis (principal); E46 Unspecified protein-calorie malnutrition; D64.9 Anemia, unspecified; R06.02 Shortness of breath; F41.9 Anxiety disorder, unspecified; J45.909 Unspecified asthma, uncomplicated
CPT/HCPCS: 36415; 71045; 71275; 78452; 80048; 80053; 82270; 83540; 83550; 83690; 83880; 84484; 85025; 85610; 85730; 87081; 93005; 93017; 93306; 96361; 96374; 96375; 99285; J2405; J2785; J7030

== ENCOUNTER 2019-09-06 21:58 | Emergency (ER) | payer MEDICAID ==
[~2019-09-06] VITALS: Ht 152.4 cm; Wt 78.9 kg
[~2019-09-06 21:58] MED LIST changes: +ACETAMINOPHEN325 M1 ORAL
--- NOTE | 2019-09-06 23:09 | NUR ---
ED Nurse Note: Patient walked in from home d/t ground level fall on back, back pain aching 02/26. Patient aao x 4 and ambulatory. Patient stable upon assessment.
[2019-09-06 23:10] VITALS: BP 135/85
--- NOTE | 2019-09-06 23:33 | NUR ---
ED Nurse Note: Patient taken to x-ray
--- NOTE | 2019-09-06 23:52 | NUR ---
ED Nurse Note: Patient returned from xray in stable condition.
[2019-09-07] MEDS ORDERED: IBUPROFEN600 MG ORAL (00:02)
--- NOTE | 2019-09-07 00:02 | Emergency Room Report ---
History of Present Illness General Chief Complaint: Back Injury Source: Patient Present Illness HPI Is a 54-year-old female with no past medical history. She presents with chief complaint of fall with back pain. Onset 2 days ago. She normally have back pain but she slipped and fell on her left knee and then twisted her back. She complained of thoracic pain. Mostly on the right side. Worse with certain movement. No other trauma. Did not pass out. Pain is 7 out of 10. No incontinence of bowel or urine. No fever chills. No numbness. Allergies: Coded Allergies: No Known Allergies (Unverified , 06/13/19) Patient History Past Medical History: see triage record, old chart reviewed Past Surgical History: none Pertinent Family History: none Social History: Denies: smoking Now: No Immunizations: other Reviewed Nursing Documentation: PMH: Agreed; PSxH: Agreed Nursing Documentation-PMH Hx Cardiac Problems: Yes - Cardiomegaly Hx Asthma: Yes Hx Cancer: No Hx Gastrointestinal Problems: No Hx Neurological Problems: No Review of Systems Eye: Denies: eye pain, blurred vision ENT: Denies: ear pain, nose congestion, throat swelling Respiratory: Denies: cough, shortness of breath Cardiovascular: Denies: chest pain, palpitations Gastrointestinal: Denies: abdominal pain, diarrhea, nausea, vomiting Musculoskeletal: Reports: back pain; Denies: joint pain Skin: Denies: rash Neurological: Denies: headache, numbness Endocrine: Denies: increased thirst, increased urine Hematologic/Lymphatic: Denies: easy bruising All Other Systems: negative except mentioned in HPI Physical Exam Vital Signs Date Time Temp Pulse Resp B/P (MAP) Pulse Ox O2 Delivery O2 Flow Rate FiO2 09/06/19 22:10 98.2 89 18 130/83 (99) 97 Room Air Vitals normal Sp02 EP Interpretation: reviewed, normal General Appearance: well appearing, no apparent distress, alert Head: normocephalic, atraumatic Eyes: bilateral eye PERRL, bilateral eye EOMI ENT: hearing grossly normal, normal pharynx Neck: full range of motion, supple, no meningismus Respiratory: chest non-tender, lungs clear, normal breath sounds Cardiovascular #1: regular rate, rhythm, no murmur Gastrointestinal: normal bowel sounds, non tender, no mass, no organomegaly, no bruit, non-distended Musculoskeletal: back normal - To the right thoracic spine area over the paraspinous muscle. No anesthesia or step-off., normal range of motion, gait/ station normal Psychiatric: mood/affect normal Medical Decision Making Diagnostic Impression: Primary Impression: Strain of thoracic back region ER Course Patient with soft tissue injury. No evidence of any fracture dislocation. Will discharge home. Other X-Ray Diagnostic Results Other X-Ray Diagnostic Results : X-Ray ordered: Thoracic spine x-ray # of Views/Limited Vs Complete: 4 View Indication: Pain EP Interpretation: Yes Interpretation: no dislocation, no soft tissue swelling, no fractures Impression: No acute disease Electronically Signed by: John Erwin MD Last Vital Signs Date Time Temp Pulse Resp B/P (MAP) Pulse Ox O2 Delivery O2 Flow Rate FiO2 09/06/19 23:52 98.3 09/06/19 23:10 87 20 135/85 96 Room Air Status: improved Disposition: HOME, SELF-CARE Condition: Stable Scripts Ibuprofen* (MOTRIN*) 600 Mg Tablet 600 MG ORAL THREE TIMES A DAY, #30 TAB 0 Refills Prov: John Erwin MD 09/07/19 Patient Instructions: Back Pain, Adult Additional Instructions: Follow-up with your doctor in 7 days. Return if symptoms worsen. John Erwin MD Sep 07, 2019 00:02
[2019-09-07 00:09] VITALS: BP 138/79
--- NOTE | 2019-09-07 00:09 | NUR ---
ER DISCHARGE NOTE: Patient is cleared to be discharged per ERMD, pt is aox4, on room air, with stable vital signs. pt was given dc and prescription instructions, pt was able to verbalize understanding, pt id band removed. pt is able to ambulate with steady gait. pt took all belongings. pt stable upon discharge.
--- NOTE | 2019-09-07 09:08 | Diagnostic Imaging Report ---
Indications: Trauma, back pain after falling Technique: Two views of the thoracic spine Comparison: No comparison plain radiographs. Reference made to chest CT scan dated 08/24/2019 Findings: Exam is somewhat limited-top of T12 is cut off of the AP view and there is no swimmer's view. There is a mild anterior wedge compression fracture deformity of the T12 vertebral body, demonstrating approximate 20% height loss. This appears similar to the previous CT scan. There is also a wedge compression fracture deformity of the L2 vertebral body, demonstrating approximately 60% height loss anteriorly. There are no prior studies that include this segment, so age is indeterminate. Anterior osteophytes suggest chronicity, however. The remaining vertebral body heights are preserved. The disc spaces are preserved. No other fractures. Pedicles are intact. Impression: T12 compression fracture, also described on 08/24/2019 CT scan L2 compression fracture, age indeterminate. Consider MRI for better characterization
== END 2019-09-07 00:09 | disposition home or self-care (01) ==
LOC: EMR 23:59
DX: S29.012A Strain of muscle and tendon of back wall of thorax, initial encounter (principal); I51.7 Cardiomegaly; J45.909 Unspecified asthma, uncomplicated; W01.0XXA Fall on same level from slipping, tripping and stumbling without subsequent striking against object, initial encounter; Y93.9 Activity, unspecified; Y92.9 Unspecified place or not applicable
CPT/HCPCS: 72070; Z7502; 99283

== ENCOUNTER 2019-09-18 18:35 | Emergency (ER) | payer MEDICAID ==
[~2019-09-18] VITALS: Ht 152.4 cm; Wt 79.4 kg
[~2019-09-18 18:35] MED LIST changes: +IBUPROFEN600 MG ORAL
--- NOTE | 2019-09-18 18:49 | NUR ---
ED Nurse Note: PT AMBULATED TO ED WITH FRIEND C/O HEAD PAIN S/P GETTING UP FROM DINNER TABLE AND FALLING OVER. PER FRIEND SHE STATES PT WAS OUT FO 2 MINUTES. PT SHOWS NAD. PT IS AOX4, ON ROOM AIR, ABLE TO VERBRALIZE NEEDS.
[2019-09-18 18:51] VITALS: BP 124/88
--- NOTE | 2019-09-18 18:55 | Emergency Room Report ---
History of Present Illness General Chief Complaint: Dizziness Source: Patient Present Illness HPI 54-year-old female presents with presyncopal episode/syncopal episode patient stated she got up 2 hours ago while she was eating dinner stood up suddenly felt lightheaded like she was about to pass out, she did not hit her head, they laid her down, she had a rapid resolution of consciousness, severity was moderate, lasting less than 2 minutes, no nausea no vomiting no chest pain or shortness of breath patient denies any other symptoms they brought her in just to make sure everything was okay patient states she feels completely fine Allergies: Coded Allergies: No Known Allergies (Unverified , 06/13/19) Patient History Past Medical History: see triage record Reviewed Nursing Documentation: PMH: Agreed; PSxH: Agreed Nursing Documentation-PMH Hx Cardiac Problems: Yes - Cardiomegaly Hx Asthma: Yes Hx Cancer: No Hx Gastrointestinal Problems: No Hx Neurological Problems: No Review of Systems All Other Systems: negative except mentioned in HPI Physical Exam Vital Signs Date Time Temp Pulse Resp B/P (MAP) Pulse Ox O2 Delivery O2 Flow Rate FiO2 09/18/19 18:39 98.2 98 18 124/88 (100) 97 Room Air Sp02 EP Interpretation: reviewed, normal General Appearance: well appearing, no apparent distress, alert Head: normocephalic, atraumatic Eyes: bilateral eye PERRL, bilateral eye EOMI ENT: uvula midline, moist mucus membranes Neck: supple, thyroid normal, supple/symm/no masses Respiratory: lungs clear, no respiratory distress, no retraction, no accessory muscle use Cardiovascular #1: normal peripheral pulses, regular rate, rhythm, no edema, no gallop, no murmur Gastrointestinal: non tender, soft, no guarding, no rebound Musculoskeletal: normal inspection Neurologic: alert, oriented x3 Psychiatric: mood/affect normal Skin: no rash, warm/dry Medical Decision Making Diagnostic Impression: Primary Impression: Syncope and collapse ER Course 54-year-old female presents mostly with vasovagal syncope differential diagnosis includes ACS, orthostatic hypotension, dehydration Labs unremarkable, EKG unremarkable chest x-ray unremarkable Counseled patient to get up slowly next time patient also rehydrated with 1 L NS Disposition home with return precautions follow-up with cardiology Laboratory Tests Test 09/18/19 18:50 White Blood Count 11.1 K/UL (4.8-10.8) H Red Blood Count 4.18 M/UL (4.20-5.40) L Hemoglobin 12.1 G/DL (12.0-16.0) Hematocrit 37.2 % (37.0-47.0) Mean Corpuscular Volume 89 FL (80-99) Mean Corpuscular Hemoglobin 29.0 PG (27.0-31.0) Mean Corpuscular Hemoglobin Concent 32.6 G/DL (32.0-36.0) Red Cell Distribution Width 14.2 % (11.6-14.8) Platelet Count 420 K/UL (150-450) Mean Platelet Volume 7.1 FL (6.5-10.1) Neutrophils (%) (Auto) 67.5 % (45.0-75.0) Lymphocytes (%) (Auto) 22.4 % (20.0-45.0) Monocytes (%) (Auto) 7.0 % (1.0-10.0) Eosinophils (%) (Auto) 1.8 % (0.0-3.0) Basophils (%) (Auto) 1.3 % (0.0-2.0) Sodium Level 143 MMOL/L (136-145) Potassium Level 3.8 MMOL/L (3.5-5.1) Chloride Level 102 MMOL/L (98-107) Carbon Dioxide Level 25 MMOL/L (21-32) Anion Gap 16 mmol/L (5-15) H Blood Urea Nitrogen 16 mg/dL (7-18) Creatinine 1.0 MG/DL (0.55-1.30) Estimate Glomerular Filtration Rate 58.2 mL/min (>60) Glucose Level 121 MG/DL (74-106) H Calcium Level 9.5 MG/DL (8.5-10.1) Total Bilirubin 0.3 MG/DL (0.2-1.0) Aspartate Amino Transferase (AST) 28 U/L (15-37) Alanine Aminotransferase (ALT) 47 U/L (12-78) Alkaline Phosphatase 96 U/L (46-116) Troponin I 0.000 ng/mL (0.000-0.056) Total Protein 8.4 G/DL (6.4-8.2) H Albumin 3.6 G/DL (3.4-5.0) Globulin 4.8 g/dL Albumin/Globulin Ratio 0.8 (1.0-2.7) L EKG Diagnostic Results EKG Time: 19:03 EP Interpretation: NSR, rate 96, QTc 449, no acute ST elevations, normal axis Rhythm Strip Diag. Results Rhythm Strip Time: 19:16 EP Interpretation: yes Rate: 98 Rhythm: NSR, no PVC's, no ectopy Chest X-Ray Diagnostic Results Chest X-Ray Diagnostic Results : Chest X-Ray Ordered: Yes # of Views/Limited/Complete: 1 View Indication: Other - syncope EP Interpretation: Yes Interpretation: no consolidation, no effusion, no pneumothorax, no acute cardiopulmonary disease Impression: No acute disease Electronically Signed by: Christian Smith MD Last Vital Signs Date Time Temp Pulse Resp B/P (MAP) Pulse Ox O2 Delivery O2 Flow Rate FiO2 09/18/19 18:51 98.2 98 18 124/88 97 Room Air Disposition: HOME, SELF-CARE Condition: Stable Scripts No Active Prescriptions or Reported Meds Referrals: [facility]. [facility] Patient Instructions: Syncope Additional Instructions: The patient was provided with discharge instructions, notified to follow-up with a primary care doctor and or specialist in the next 24-48 hours, and to return to the ED if they have worsening of their symptoms. Please note that this report is being documented using Central Desktop technology. This can lead to erroneous entry secondary to incorrect interpretation by the dictating instrument. PLEASE FOLLOW-UP WITH CARDIOLOGY Christian Smith MD Sep 18, 2019 18:55
--- NOTE | 2019-09-18 18:59 | NUR ---
ED Nurse Note: iV SITE ESTABLISHED, PATENT AND INTACT. BLOOD SPECIMEN COLLECTED AND SENT TOLAB. URINE SPECIMEN SENT TO LAB
[2019-09-18 19:34] LABS: BASOPHILS % (AUTO) 1.3 % (0.0-2.0); EOSINOPHILS % (AUTO) 1.8 % (0.0-3.0); HEMATOCRIT 37.2 % (37.0-47.0); HEMOGLOBIN 12.1 G/DL (12.0-16.0); LYMPHOCYTES % (AUTO) 22.4 % (20.0-45.0); MEAN CORPUSCULAR VOLUME 89 FL (80-99); NEUTROPHILS % (AUTO) 67.5 % (45.0-75.0); PLATELET COUNT 420 K/UL (150-450); RED BLOOD COUNT 4.18 M/UL (4.20-5.40); RED CELL DISTRIBUTION WIDTH 14.2 % (11.6-14.8); WHITE BLOOD COUNT 11.1 K/UL (4.8-10.8)
[2019-09-18 19:45] LABS: ALANINE AMINOTRANSFERASE 47 U/L (12-78); ALBUMIN 3.6 G/DL (3.4-5.0); ALBUMIN/GLOBULIN RATIO 0.8 (1.0-2.7); ALKALINE PHOSPHATASE 96 U/L (46-116); ANION GAP 16 mmol/L (5-15); ASPARTATE AMINO TRANSFERASE 28 U/L (15-37); BILIRUBIN,TOTAL 0.3 MG/DL (0.2-1.0); BLOOD UREA NITROGEN 16 mg/dL (7-18); CALCIUM 9.5 MG/DL (8.5-10.1); CARBON DIOXIDE 25 MMOL/L (21-32); CHLORIDE 102 MMOL/L (98-107); POTASSIUM 3.8 MMOL/L (3.5-5.1); SODIUM 143 MMOL/L (136-145)
[2019-09-18 20:05] VITALS: BP 124/88
--- NOTE | 2019-09-18 20:05 | NUR ---
ER DISCHARGE NOTE: Patient is cleared to be discharged per ERMD, pt is aox4, on room air, with stable vital signs. pt was given dc and prescription instructions, pt was able to verbalize understanding, pt id band and iv site removed without complications. pt is able to ambulate with steady gait. pt took all belongings.
--- NOTE | 2019-09-19 10:53 | Diagnostic Imaging Report ---
Indication: Dyspnea Comparison: 08/23/2019 A single view chest radiograph was obtained. Findings: No definite infiltrate or pulmonary vascular congestion identified. The heart is enlarged. The aorta is mildly enlarged consistent with atherosclerotic vascular disease. The bones are osteopenic. There are thoracic vertebral enthesophytes at multiple levels. Impression: No acute disease
== END 2019-09-18 20:05 | disposition home or self-care (01) ==
LOC: EMR 19:57
DX: R55 Syncope and collapse (principal)
CPT/HCPCS: 36415; 71045; 80053; 84484; 85025; 93005; 96360; J7030; Z7502; 99284